=== PATIENT | female | born 1965 | race Caucasian/White ===

== ENCOUNTER 2016-10-22 01:37 | Observation (INO) ==
--- NOTE | 2016-10-22 08:43 | Internal Med History&Physical ---
Date of Encounter: 10/22/16 Time of Encounter: 08:41 Assessment and Plan (1) Chest pain Current visit: Yes Status: Acute Suspect that her symptoms is related to GERD. She had a normal coronary angiogram 3 years ago. However because of persistent pain she has been admitted to our facility. Serial cardiac markers. Continuous telemetry monitoring. IV Protonix Qualifiers: Qualified Code(s): R07.9 - Chest pain, unspecified (2) Diabetes mellitus type 2 in obese Current visit: Yes Status: Acute Sliding scale insulin. Check hemoglobin A-1 C. Internal Medicine - H&P: HPI Chief complaint: chest pain History of present illness: Ms. Paz is a 50 year old female with multiple medical problems including diabetes mellitus type II, obstructive sleep apnea noncompliant with CPAP, hypertension, GERD, asthma who had a normal coronary angiogram 3 years ago at our facility was transferred from outside the hospital because of chest pain. Since 9 PM yesterday patient started experiencing epigastric and retrosternal chest pain radiating to her left arm associated with multiple symptoms including nausea vomiting lightheadedness and shortness of breath. These symptoms have been consistent for multiple hours therefore she was transferred to facility further evaluation. She denies any hematemesis melena or hematochezia. D dimer was checked outside facility and was normal Past Med Surg Social Fam HX - Past Medical History Medical history: asthma, COPD, CVA, diabetes, GERD, hyperlipidemia, hypertension , liver disease, other Psychiatric history: anxiety, depression - Past Surgical History Surgical History: breast surgery, , hysterectomy, orthopedic, other, other - Social History Smoking Status: Never smoker Smokeless Tobacco Status: No Alcohol use: none Drug use: none - Family History Sister Hx Family Cancer: Yes (ovarian) Mother Living Status: Hx Family Cardiac Disorders: No Hx Family Respiratory Disorders: No Hx Family Cancer: Yes (brain) Hx Family GI Disorders: No Hx Family Endocrine Disorder: No Hx Family Neuromuscular Disorders: No Hx Family Neurologic Disorders: No Hx Family HEENT Disorders: No Hx Family Autoimmune Disorders: No Father Adopted: No Living Status: Hx Family Cardiac Disorders: No Hx Family Respiratory Disorders: No Hx Family Cancer: Yes (colon) Hx Family GI Disorders: Yes Hx Family Endocrine Disorder: No Hx Family Neuromuscular Disorders: No Hx Family Neurologic Disorders: No Hx Family HEENT Disorders: No Hx Family Autoimmune Disorders: No Internal Medicine - H&P: Meds Aspirin 81 mg PO DAILY 03/01/15 [History] Atorvastatin [Lipitor] 20 mg PO HS 03/11/15 [History] Lisinopril [Zestril] 10 mg PO DAILY 03/11/15 [History] Loratadine [Claritin] 10 mg PO DAILY 03/11/15 [History] Omeprazole [PriLOSEC] 40 mg PO DAILY 03/11/15 [History] Estradiol [Estrace] 1 mg PO DAILY 08/08/15 [History] Aclidinium [place] [Tudorza Pressair] 1 puff IH BID 01/27/16 [History] EPINEPHrine [Epipen] 0.3 mg IJ ONCE PRN 01/27/16 [History] Ipratropium/Albuterol Sulfate [Combivent Respimat Inhal [place]] 1 puff IH QID 12/07 [History] Montelukast [Singulair] 10 mg PO DAILY 01/27/16 [History] Metformin HCl [Glucophage] 1,000 mg PO BID 02/06/16 [History] Meloxicam 7.5 mg PO DAILY 04/07/16 [History] Albuterol Sulfate [Proair Respiclick] 1 puff IH BID 07/23/16 [History] Budesonide/Formoterol 160/4.5 [Symbicort 160/4.5] 1 puff IH BIDR 07/23/16 [ History] Ferrous Sulfate 325 mg PO BID #60 tablet 07/23/16 [Rx] GlipiZIDE [Glipizide] 5 mg PO DAILY 07/23/16 [History] Potassium Chloride [Klor-Con 10] 10 meq PO BID 07/23/16 [History] Tolterodine Tartrate [Detrol] 2 mg PO DAILY 07/23/16 [History] Cholecalciferol (Vitamin D3) [Vitamin D] 50,000 unit PO QWEEK 10/17/16 [History] Cyclobenzaprine [Flexeril] 10 mg PO TID #9 tablet 10/17/16 [Rx] Ipratropium/Albuterol Neb [Duoneb] 3 ml IH Q6HR 10/22/16 [History] Oxybutynin Chloride [Ditropan Xl] 10 mg PO DAILY 10/22/16 [History] Allergies mushroom Allergy (Verified 10/22/16 07:25) Swelling of Lip/Tongue/Throat All Systems PM: A 10-system review of systems was performed and is negative for pertinent findings except as documented above in the HPI. Review of systems: 10 point ROS is negative except for HPI. - Constitutional Vitals: Temp Pulse Resp BP Pulse Ox 97.9 F 74 20 106/66 98 10/22/16 07:39 10/22/16 07:39 10/22/16 07:39 10/22/16 07:39 10/22/16 07:39 Exam: Gen.: patient is alert oriented not in distress. Cardiac: Normal S1 S2 no additional sounds or murmurs chest: clear to auscultation abdomen soft nontender nondistended normal bowel sounds lower extremity: lax calf muscles neuro no focal deficit
[2016-10-22] MEDS ORDERED: Pantoprazole 40 MG VIAL IVP SCH (09:00)
[2016-10-22] MEDS ORDERED: (Ipratropium/Albuterol Sulfate [Combivent Respimat In) IH SCH (09:00)
[2016-10-22] MEDS ORDERED: Aspirin 81 MG TAB.CHEW PO SCH (09:00)
[2016-10-22 09:53] LABS: Basophils % 0.4 %; Eosinophils # 0.2 K/mcL (0.0-0.6); Hemoglobin 11.6 g/dL (11.5-15.4); Immature Granulocytes % 0.4 % (0-4); Lymphocytes # 1.9 K/mcL (0.6-4.6); Lymphocytes % 23.1 %; Mean Corpuscular HGB Conc 32.2 g/dL (31.6-35.5); Mean Corpuscular Hemoglobin 26.5 pg (28.0-33.3); Mean Corpuscular Volume 82.4 fL (83.0-100.0); Mean Platelet Volume 9.4 fL (9.4-12.4); Monocytes # 0.6 K/mcL (0.0-1.3); Monocytes % 7.4 %; Neutrophils # 5.4 K/mcL (1.6-8.9); Platelet Count 286 K/mcL (140-400); Red Blood Count 4.37 M/mcL (3.82-4.97); Red Cell Distribution Width 20.1 % (11.5-14.5); Segmented Neutrophils % 66.7 %
[2016-10-22] MEDS ORDERED: Budesonide/Formoterol 160/4.5 MDI IH SCH (10:00)
[2016-10-22 10:06] LABS: BUN/Creatinine Ratio 18 (6-26); Blood Urea Nitrogen 13 mg/dL (7-20); Calcium 9.2 mg/dL (8.6-10.8); Carbon Dioxide 25 mEq/L (19-29); Chloride 106 mEq/L (98-109); Creatine Kinase 72 Units/L (29-168); Glucose 108 mg/dL (70-99); Magnesium 2.3 mg/dL (1.6-2.6); Osmolality,Calculated 287 (280-300); Potassium 4.6 mEq/L (3.5-4.5); Sodium 138 mEq/L (136-145); eGFR For African Americans > 60 (> 60); eGFR For Non-African Americans > 60 (> 60)
--- NOTE | 2016-10-22 10:27 | Cardiology Consult Note ---
<Zacarias Laboy - Last Filed: 10/22/16 10:10> Date of Encounter: 10/22/16 Time of Encounter: 10:10 Assessment and Plan (1) Chest pain Current Visit: Yes Status: Acute Patient reports non cardiac chest pain that started last night. Substernal and epigastric, constant 7-8/10 CP that radiates down her left arm. Pain was reproducible with epigastric pressure. Patient received GI cocktail in ED that she states helped. CTA chest, abdomen, pelvis negative for acute abnormality, CXR negative. Recently she had cholesterol checked in Aug that were within normal limits. patient has Hx of LHC 11/08/13 which showed normal coronary arteries. EF was 65% . Recommendation was optical medical therapy at that time. She also had an Echo done 09/12/13, which was ordered due to palpitations. Echo showed LVEF 60-65%, normal LV structure and function moderate LV diastolic dysfunction, no significant valvular dysfunction, normal RV structure and function, no pulmonary hypertension. Patient had stress testing done on 08/09/15 which was negative for infarct or ischemia. pharmacolgic EKG was non diagnostic for ischemia, no arrhythmias noted , gated EF >70%, no evidence of TID. EKG did not show any significant signs of ischemia, and no change compared to previous EKG. Troponin negative. Plan: this is non cardiac chest pain, likely secondary to GI cause/GERD. Recommend further non cardiac Chest pain workup Another GI cocktail ordered. Given Hx of negative LHC and negative stress test in 2016, pre test probability is low for blockage, no LHC at this time. Continue medical management with ASA, statin No further recommendations from cardiology stand point. Will sign off. Please re consult PRN. Qualifiers: Qualified Code(s): R07.9 - Chest pain, unspecified Discussion w patient/family: The assessment and plan as outlined above was discussed with the patient and/or family members who expressed understanding and agreement. All questions were answered. Thank you for involving us in the care of your patient. Please call with any questions. History of Present Illness Consult date: 10/22/16 Requesting physician: Wolf Slade Consult reason: atypical chest pain Chief complaint: chest pain History of present illness: Ms. Paz is a 50 year old female with PMHx of DM II, TATI (reports compliance with CPAP at home), HTN, GERD, asthma. Patient went to [facility] ED with CC of substernal chest pain that radiated to her left arm. She had nausea, vomiting, and was diaphoretic. Patient stated the chest pain began at about 9pm last night and has been constant since. pain was 7-8/10. Her pain does not change whether she sits up or lays down, and her pain is not associated with activity. Patient does have a Hx of GERD and takes prilosec at home. She states she received a GI cocktail in the ED, which helped. She received 4 baby ASA in the ED at [facility]. Cardiac Hx: patient has Hx of LHC 11/08/13 which showed normal coronary arteries. EF was 65% at that time. Recommendation was optical medical therapy at that time. She also had an Echo done 09/12/13, which was ordered due to palpitations. Echo showed LVEF 60-65%, normal LV structure and function moderate LV diastolic dysfunction, no significant valvular dysfunction, normal RV structure and function, no pulmonary hypertension. Patient had stress testing done on 08/09/15 which was negative for infarct or ischemia. pharmacolgic EKG was non diagnostic for ischemia, no arrhythmias noted, gated EF >70%, no evidence of TID. Past Med Surg Social Fam HX - Past Medical History Medical history: asthma, COPD, CVA, diabetes, GERD, hyperlipidemia, hypertension , liver disease, other Psychiatric history: anxiety, depression - Past Surgical History Surgical History: breast surgery, , hysterectomy, orthopedic, other, other - Social History Smoking Status: Never smoker Smokeless Tobacco Status: No Alcohol use: none Drug use: none - Family History Sister Hx Family Cancer: Yes (ovarian) Mother Living Status: Hx Family Cardiac Disorders: No Hx Family Respiratory Disorders: No Hx Family Cancer: Yes (brain) Hx Family GI Disorders: No Hx Family Endocrine Disorder: No Hx Family Neuromuscular Disorders: No Hx Family Neurologic Disorders: No Hx Family HEENT Disorders: No Hx Family Autoimmune Disorders: No Father Adopted: No Living Status: Hx Family Cardiac Disorders: No Hx Family Respiratory Disorders: No Hx Family Cancer: Yes (colon) Hx Family GI Disorders: Yes Hx Family Endocrine Disorder: No Hx Family Neuromuscular Disorders: No Hx Family Neurologic Disorders: No Hx Family HEENT Disorders: No Hx Family Autoimmune Disorders: No Medications and Allergies Aspirin 81 mg PO DAILY 03/01/15 [History] Atorvastatin [Lipitor] 20 mg PO HS 03/11/15 [History] Lisinopril [Zestril] 10 mg PO DAILY 03/11/15 [History] Loratadine [Claritin] 10 mg PO DAILY 03/11/15 [History] Omeprazole [PriLOSEC] 40 mg PO DAILY 03/11/15 [History] Estradiol [Estrace] 1 mg PO DAILY 08/08/15 [History] Aclidinium [place] [Tudorza Pressair] 1 puff IH BID 01/27/16 [History] EPINEPHrine [Epipen] 0.3 mg IJ ONCE PRN 01/27/16 [History] Ipratropium/Albuterol Sulfate [Combivent Respimat Inhal [place]] 1 puff IH QID 12/07 [History] Montelukast [Singulair] 10 mg PO DAILY 01/27/16 [History] Metformin HCl [Glucophage] 1,000 mg PO BID 02/06/16 [History] Meloxicam 7.5 mg PO DAILY 04/07/16 [History] Albuterol Sulfate [Proair Respiclick] 1 puff IH BID 07/23/16 [History] Budesonide/Formoterol 160/4.5 [Symbicort 160/4.5] 1 puff IH BIDR 07/23/16 [ History] Ferrous Sulfate 325 mg PO BID #60 tablet 07/23/16 [Rx] GlipiZIDE [Glipizide] 5 mg PO DAILY 07/23/16 [History] Potassium Chloride [Klor-Con 10] 10 meq PO BID 07/23/16 [History] Tolterodine Tartrate [Detrol] 2 mg PO DAILY 07/23/16 [History] Cholecalciferol (Vitamin D3) [Vitamin D] 50,000 unit PO QWEEK 10/17/16 [History] Cyclobenzaprine [Flexeril] 10 mg PO TID #9 tablet 10/17/16 [Rx] Ipratropium/Albuterol Neb [Duoneb] 3 ml IH Q6HR 10/22/16 [History] Oxybutynin Chloride [Ditropan Xl] 10 mg PO DAILY 10/22/16 [History] Allergies mushroom Allergy (Verified 10/22/16 07:25) Swelling of Lip/Tongue/Throat All Systems Review: A 10-system review of systems was performed and is negative for pertinent findings except as documented above in the HPI. - Constitutional Constitutional: weight gain, no chills - Cardiovascular Cardiovascular: chest pain at rest, chest pain with exertion, no diaphoresis, no radiating jaw, neck or arm pain, no syncope - Gastrointestinal Gastrointestinal: abdominal pain - Musculoskeletal Musculoskeletal: no back pain - Integumentary Integumentary: no rash - Neurological Neurological: no dizziness Physical Examination Vital Signs, Last 4 Hours Temp Pulse Resp BP Pulse Ox 10/22/16 07:39 97.9 F 74 20 106/66 98 General: Conversant, Other (moderate distress due to chest pain. ) HEENT: Atraumatic, Normocephaly Neck: No JVD Cardiac: Normal S1 and S2 Lungs: No Wheeze, Rales, Rhonchi Neuro: Alert and responsive, No focal deficits noted Abdomen: Soft, Other (epigastric tenderness. ) Extremities: No Clubbing, No Cyanosis, No Edema Consult Discharge Plan - Plan Referrals: NO,PCP [Primary Care Provider] - <Estefani Villaseñor - Last Filed: 10/22/16 12:40> Date of Encounter: 10/22/16 Assessment and Plan Discussion w patient/family: The assessment and plan as outlined above was discussed with the patient and/or family members who expressed understanding and agreement. All questions were answered. Thank you for involving us in the care of your patient. Please call with any questions. History of Present Illness History of present illness: Ms. Paz is a 50 year old female All Systems Review: A 10-system review of systems was performed and is negative for pertinent findings except as documented above in the HPI. Physical Examination Vital Signs, Last 4 Hours Temp Pulse Resp BP Pulse Ox 10/22/16 11:08 97.6 F 78 18 114/80 99 10/22/16 10:50 98 Results 10/22/16 09:15 10/22/16 09:15 Lab Results 10/22/16 10/22/16 10/22/16 09:15 09:15 09:15 WBC 8.1 Hgb 11.6 D Hct 36.0 Plt Count 286 Sodium 138 Potassium 4.6 H Chloride 106 Carbon Dioxide 25 BUN 13 Creatinine 0.74 Glucose 108 H Calcium 9.2 Magnesium 2.3 Troponin I 0.00 - Attending Attestation I examined this patient and my medical decision-making was reviewed with the SPEECH SCIENTIST/PA/Advanced Practice Nurse/Resident Physician. I agree with the documented findings, disposition and treatment plan. Ms. Paz presents with atypical chest pain that is reproducible when palpating the mid epigastric area. Her chest pain does not represent an ACS. Her troponin was negative and she has no new ECG changes. She also had a LHC in 2013 which did not demonstrate CAD. No further testing is warranted from a cardiac standpoint. We will sign off.
[2016-10-22] MEDS ORDERED: GI Cocktail 40 ML EACH PO ONE (11:22)
[2016-10-22] MEDS ORDERED: Insulin LISPRO 300 UNITS/3 ML VIAL SQ SCH (11:30)
[2016-10-22] MEDS ORDERED: *HR* Heparin 5,000 UNIT/ML VIAL SQ SCH (14:00)
[2016-10-22 16:12] VITALS: BP 125/79
--- NOTE | 2016-10-22 17:26 | Discharge Summary ---
Date of Encounter: 10/22/16 Time of Encounter: 17:25 - Discharge Diagnosis (1) Chest pain Priority: Primary (non anginal. 3 sets of troponin normal) Status: Acute Comments: Non anginal chest pain 3 sets of cardiac markers normal. Qualifiers: Qualified Code(s): R07.9 - Chest pain, unspecified (2) Diabetes mellitus type 2 in obese Priority: Secondary (controlled) Status: Acute - Discharge Medications Home Medications: Aspirin 81 mg PO DAILY 03/01/15 [History] Atorvastatin [Lipitor] 20 mg PO HS 03/11/15 [History] Lisinopril [Zestril] 10 mg PO DAILY 03/11/15 [History] Loratadine [Claritin] 10 mg PO DAILY 03/11/15 [History] Omeprazole [PriLOSEC] 40 mg PO DAILY 03/11/15 [History] Estradiol [Estrace] 1 mg PO DAILY 08/08/15 [History] Aclidinium [place] [Tudorza Pressair] 1 puff IH BID 01/27/16 [History] EPINEPHrine [Epipen] 0.3 mg IJ ONCE PRN 01/27/16 [History] Ipratropium/Albuterol Sulfate [Combivent Respimat Inhal [place]] 1 puff IH QID 12/07 [History] Montelukast [Singulair] 10 mg PO DAILY 01/27/16 [History] Metformin HCl [Glucophage] 1,000 mg PO BID 02/06/16 [History] Albuterol Sulfate [Proair Respiclick] 1 puff IH BID 07/23/16 [History] Budesonide/Formoterol 160/4.5 [Symbicort 160/4.5] 1 puff IH BIDR 07/23/16 [ History] Ferrous Sulfate 325 mg PO BID #60 tablet 07/23/16 [Rx] GlipiZIDE [Glipizide] 5 mg PO DAILY 07/23/16 [History] Potassium Chloride [Klor-Con 10] 10 meq PO BID 07/23/16 [History] Tolterodine Tartrate [Detrol] 2 mg PO DAILY 07/23/16 [History] Cholecalciferol (Vitamin D3) [Vitamin D3] 50,000 unit PO QWEEK 10/17/16 [History ] Cyclobenzaprine [Flexeril] 10 mg PO TID #9 tablet 10/17/16 [Rx] Ipratropium/Albuterol Neb [Duoneb] 3 ml IH Q6HR 10/22/16 [History] Oxybutynin Chloride [Ditropan Xl] 10 mg PO DAILY 10/22/16 [History] Allergies/Adverse Reactions: Allergies mushroom Allergy (Verified 10/22/16 07:25) Swelling of Lip/Tongue/Throat Date of admission: 10/22/16 04:10 Primary care physician: PCP NO Consults: 10/22/16 08:35 Consult to Cardiology [CONS] Routine Comment: Consulting Provider: [facility] [place] Reason for Consult: chest pain Call Completed: No - Patient Status Disposition: Home, Self-Care Condition: Fair Overall status at discharge: patient is progressing back to baseline - Discharge Instructions Follow Up With: NO,PCP [Primary Care Provider] - Additional Instructions: follow up with PCP within 3-4 days after DC - Diet and Activity Diet: advance to your usual diet Hospital course: Ms. Paz is a 50 year old female who presented to the hospital with a typical chest pain. 3 sets of cardiac markers were normal. Cardiology service evaluated the patient and the find off. Patient mentioned that she had a coronary angiogram a few years ago but showed no occlusive disease. Patient wants to be discharged home does not want us be monitored overnight in the hospital. Her D dimer was also normal - Time Spent with Patient Total time spent providing and/or coordinating discharge services: - Constitutional Vitals: Temp Pulse Resp BP Pulse Ox 97.9 F 78 14 125/79 97 10/22/16 16:09 10/22/16 16:09 10/22/16 16:09 10/22/16 16:09 10/22/16 16:09 Exam: General patient is alert oriented modern distress cardio: normal S1 S2 chest: clears auscultation abdomen soft nontender neurological no focal deficit
[2016-10-25 11:32] LABS: CK-MB (CK isoenzymes) 0 % (0-4); CK-MM (CK-isoenzymes) 100 % (96-100)
[2016-10-25 19:37] LABS: CK-BB (CK isoenzymes) 0 % (0-0); CK-MB (CK isoenzymes) 0 % (0-4); CK-MM (CK-isoenzymes) 100 % (96-100)
[2016-10-26 07:19] LABS: CK Total (Ck Isoenzymes) 71 U/L (20-180); CK-BB (CK isoenzymes) 0 % (0-0)
[2016-10-26 07:20] LABS: CK Total (Ck Isoenzymes) 74 U/L (20-180)
== END 2016-10-22 18:43 | disposition home or self-care (01) ==
LOC: 3BNU
PROVIDERS: ADMIT Internal Medicine; ATTEND Registered Nurse

== ENCOUNTER 2017-11-29 05:53 | Inpatient (IN) ==
[2017-11-29] MEDS ORDERED: Bacitracin 50,000 UNIT, Polymyxin B Sulfate 500,000 UNIT, Sodium Chloride IRRigation 1,... IR ONE (06:00)
[2017-11-29] MEDS ORDERED: CeFAZolin Syr 2,000MG/20 ML 2,000 MG/20 ML SYRINGE IVPB ONE (06:17)
[2017-11-29] MEDS ORDERED: Ringers Solution, Lactated 1,000 ML IVC SCH (06:30)
[2017-11-29] MEDS ORDERED: Albuterol 2.5 MG/3 ML NEBULIZER IH ONE (06:35)
[2017-11-29] MEDS ORDERED: Acetaminophen IV 1,000 MG/100 ML INFUS..BTL IVPB ONE (06:58)
--- NOTE | 2017-11-29 07:00 | Anesthesia Evaluation PreOp ---
Date of Encounter: 11/29/17 Time of Encounter: 07:00 - Past History Planned Operation: PLIF L4-5 Cardiac History: Hyperlipidemia, Other (2016 stress negative for ischemia EF 70% ) Pulmonary History: Asthma, COPD, TATI Dx SOFTWARE DESIGN ENGINEER History: Other (anxiety, depression) Other Medical History: Diabetes Type II, GERD Anesthesia History: No Prior Anesthetic Complications, Past Anesthesia (csection , breast reduction, hysterectomy,) Alcohol Use: none Drug use: none Medications and Allergies Aspirin 81 mg PO DAILY 03/01/15 [History] Atorvastatin [Lipitor] 20 mg PO HS 03/11/15 [History] Lisinopril [Zestril] 10 mg PO DAILY 03/11/15 [History] Omeprazole [PriLOSEC] 40 mg PO DAILY 03/11/15 [History] EPINEPHrine [Epipen] 0.3 mg IJ ONCE PRN 01/27/16 [History] Metformin HCl [Glucophage] 1,000 mg PO BID 02/06/16 [History] Albuterol Sulfate [Proair Respiclick] 1 puff IH BID 07/23/16 [History] Budesonide/Formoterol 160/4.5 [Symbicort 160/4.5] 1 puff IH BIDR 07/23/16 [ History] glipiZIDE [Glipizide] 5 mg PO DAILY 07/23/16 [History] Ipratropium/Albuterol Neb [Duoneb] 3 ml IH Q6HR 10/22/16 [History] Cyanocobalamin (Vitamin B-12) [Vitamin B-12] 2,000 mcg PO DAILY #30 tablet 12/28 [Rx] Ferrous Sulfate 325 mg PO BID #60 tablet 02/08/17 [Rx] Gabapentin [Neurontin] 600 mg PO TID 11/29/17 [History] Meloxicam [Meloxicam] 7.5 mg PO DAILY 11/29/17 [History] Potassium Citrate [Urocit-K] 1,080 meq PO QID 11/29/17 [History] 3 Allergy/AdvReac Type Severity Reaction Status Date / Time mushroom Allergy Swelling Verified 11/22/17 08:28 of Lip/Tongue/Throat - Meds/Allergy Pre-op Review Medications Reviewed: Yes Allergies Reviewed: Yes Beta Blockers on Current Med List: No Anesthesia Results - Labs Laboratory Tests 11/22/17 11/22/17 08:50 08:50 WBC 8.6 Hgb 12.9 Hct 38.8 Plt Count 317 PT 11.5 INR 1.1 APTT 30.8 - Imaging EKG: report reviewed (sinus tachy 100bpm) Anesthesia Exam O2 Sat Height 1.5 m Height 1.5 m Height 1.5 m Weight 79.832 kg Weight 79.832 kg Weight 79.832 kg O2 Sat by Pulse Oximetry 97 O2 Sat by Pulse Oximetry 97 Vital Signs Temp Pulse Resp BP Pulse Ox 98.1 F 68 18 113/59 97 11/29/17 06:17 11/29/17 06:17 11/29/17 06:17 11/29/17 06:17 11/29/17 06:17 Blood glucose: 138 Height: 59" Weight: 176lbs NPO (# of Hours): >8 Pain Scale: 10 Pain Scale Used: Numeric (1 - 10) - HEENT Pupil (Motor): Pupils equal, EOMI Mallampati: III (small chin) Teeth: Missing (lower molars) Oral Opening: Less than or equal to 3 - SOFTWARE DESIGN ENGINEER LOC: Oriented SOFTWARE DESIGN ENGINEER Motor: Normal RUE, Normal LUE, Normal RLE, Normal LLE, Normal Face SOFTWARE DESIGN ENGINEER Sensory: Normal: RUE, LUE, RLE, LLE, Face - Cardiac Rhythm: Regular - Pulmonary Breath Sounds: bilateral Clear Respiratory Effort: Symmetrical Anesthesia Assess/Plan ASA Score: 3 (HTN, asthma, COPD, TATI, DM) Anesthetic Plan: General Monitoring Plan: Standard Monitors Recovery Plan: PACU
[2017-11-29] MEDS ORDERED: Lidocaine -MPF 1% 2 ML VIAL ONE ×2 (07:12→07:22)
--- NOTE | 2017-11-29 07:25 | History & Physical Report ---
Date of Encounter: 11/29/17 Time of Encounter: 07:24 24 Hour HP Update - Instructions Instructions: If the History and Physical is less than 30 days old and was completed prior to A.M. admission and or procedure and has NOT been updated on calendar day of procedure please complete this update prior to performing procedure. - Update Patient reports changes in Medical Condition: No Changes in examination, assessment, or condition: No Changes in Medication: No Preop tests/diagnostics Reviewed: Yes Pre-Op MRSA Screen: Negative Surgery Remains Indicated: Yes Consent for Planned Operative Procedure(s) Verified: Yes - Pre-Operative Checklist Preoperative Checklist Indicated: No Prophylactic Antibiotic Ordered: Yes Home Medications Include Beta Dixie: No Beta Dixie Taken Today (Day of Surgery): No Beta Dixie Taken Yesterday (Day Prior to Surgery): No Is VTE Prophylaxis Indicated?: Yes
[2017-11-29] MEDS ORDERED: *HR* Rocuronium Bromide 50 MG/5 ML VIAL ONE (07:28)
[2017-11-29] MEDS ORDERED: *HR* FentaNYL (PF) 100 MCG/2 ML VIAL ONE ×2 (07:28→10:10)
[2017-11-29] MEDS ORDERED: Lidocaine -MPF 4% 5 ML AMPUL ONE (07:28)
[2017-11-29] MEDS ORDERED: *HR* Propofol 200 MG/20 ML VIAL IVP ONE (07:28)
[2017-11-29] MEDS ORDERED: Lidocaine -MPF 2% 2 ML VIAL ONE (07:28)
[2017-11-29] MEDS ORDERED: *HR* Midazolam HCl 2 MG/2 ML VIAL ONE (07:28)
[2017-11-29] MEDS ORDERED: *HR* Remifentanil 2 MG VIAL IVP ONE (08:21)
[2017-11-29] MEDS ORDERED: Dexamethasone 4 MG/ML VIAL ONE (08:37)
[2017-11-29] MEDS ORDERED: Neostigmine Methylsulfate 3 MG/3 ML SYRINGE ONE (08:41)
[2017-11-29] MEDS ORDERED: Ondansetron 4 MG/2 ML VIAL ONE (08:42)
[2017-11-29] MEDS ORDERED: Ondansetron 4 MG/2 ML VIAL IVP PRN (08:59)
[2017-11-29] MEDS ORDERED: *HR* OxyCODONE Immed Rel 5 MG TABLET PO PRN (08:59)
[2017-11-29] MEDS ORDERED: *HR* HYDROmorphone 2 MG TABLET PO PRN (08:59)
[2017-11-29] MEDS ORDERED: MORPHINE SUL Oral CONC 10 MG/0.5 ML ORAL.SYG SL PRN (08:59)
[2017-11-29] MEDS ORDERED: *HR* PHENYLEPHRINE 1,000 MCG/10 ML SYRINGE IVP ONE (09:09)
--- NOTE | 2017-11-29 10:27 | Orthopedic Operative Note ---
Date of procedure: 11/29/17 Pre-op diagnosis: Spondylolisthesis, lumbar stenosis, lumbar radiculopathy Post-op diagnosis: same Operation/Findings: Posterior lumbar interbody fusion L4-L5: The patient successfully underwent general endotracheal anesthesia. The patient was given antibiotics prior to the start of the procedure. Compression boots and stockings were used for deep vein thrombosis prophylaxis. A Cohen catheter was placed. Leads for neuro monitoring were placed on the upper and lower extremities. This included the cranium. The neuro monitoring personnel confirmed there were satisfactory readings prior to the start of the procedure. The patient was turned prone on the Rolf table. The back was prepped and draped in the usual sterile fashion. An incision was was marked and centered over the involved L4 and L5 levels in the mid line. The incision was deepened through the lumbar fascia. Bovie cautery and Gaines elevators were used to reflect the paraspinal musculature at the lateral extent of the L4 and L5 transverse processes of the involved levels. Laura clamps were placed over the L4 and L5 spinous processes. An intraoperative lateral fluoroscopy graft was obtained. A conversation was held between the surgeon and radiologist and both confirmed we had the correct operative levels. We then placed pedicle screws in standard fashion with the aid of fluoroscopy and anatomic landmarks. Briefly a starter awl was used. A gearshift was subsequently used to enter the airline transport pilot hole via a transpedicular route into the vertebral body. The airline transport pilot hole was tapped with an undersized instrument, and subsequently four 6.5 x 40 mm pedicle screws were placed bilaterally at the indicated L4 and L5 levels. The screws were tested with the aid of the neurologic monitoring staff via pedicle screw stimulation. All reading suggested there was no significant cortical wall breech. The screws were also evaluated fluoro- graphically and appeared to be in satisfactory position. We then turned our attention to the decompression portion of the procedure. We removed the supraspinous and interspinous ligaments and subsequently the insertion of the ligamentum flavum on the undersurface of the proximal L4 lamina was dislodged with a curette. We then removed the ligamentum flavum as well as undercut the L4-L5 facets at this L4- L5 level to decompress the lateral recesses. We also performed a L4 laminectomy. After the decompression, which was over and above that which was required to place the interbody graft, the foramen and traversing roots at this L4-L5 level were found to be free and patent. We also took part of the medial facets in order to aid in the decompression. We then protected the neural elements including the thecal sac and traversing nerve root on the right with a dural retractor. We made an annulotomy into the L4-L5 disc space and then removed entire disc material using Pituitary instruments. We trialed various size grafts after the endplates were prepared for graft insertion. A 10 x 26 enter body graft fit well within the L4-L5 disc space. We obtained some bone from the right posterior superior iliac spine through us a separate incision and combined with this with the bone which we had saved from the laminectomy portion of the procedure. This autograft bone was first placed in the anterior portion of the L4-L5 disc space and additional bone was placed within the interbody graft spacer. We then placed the interbody graft spacer obliquely across the L4-L5 disc space towards the midline while protecting the neural elements with a root retractor. When the graft was found to be in satisfactory position the rack cleaner was removed. We then copiously irrigated the wound. We then decorticated the L4 and L5 transverse processes as well as the L4-L5 facet joints of the involved levels to aid in the posterolateral fusion. We placed autograft bone in the lateral gutters over these regions. We then placed rods within the screw heads of the involved levels and first locked the distal screws and then subsequently locked the proximal screws so as to improve and reduce the spondylolisthesis previously seen. We then closed the wound in layers with 1 Vicryl for the fascia, 2-0 Vicryl. Subcutaneous tissue, and Dermabond was used for skin closure. Sterile dressings were placed over the wound. The patient was turned supine on a hospital bed and extubated. All sponge instruments and needle counts were correct at the end of the procedure. The patient tolerated the procedure well without complications. Anesthesia: GETA Surgeon: Case Elizabeth Jr Was there an patient observation assistant present: No Estimated blood loss (cc): 120 Specimen: None Condition: stable Disposition: PACU
--- NOTE | 2017-11-29 11:04 | Anesthesia Evaluation Post Op ---
Date of Encounter: 11/29/17 Time of Encounter: 11:05 - Vital Signs Vital Signs: Vital Signs/O2 Sat/Glucose, Most Current Temp Pulse Resp BP Pulse Ox 11/29/17 10:40 98.1 F 82 14 131/79 99 - Lungs Lungs: Clear Ascult./Percussion - Airway Airway: Non-obstructed - Cardiovascular Regular Rate - Mental Status Mental Status: Alert & Oriented, Answers Appropriately - Pain Pain Scale: 1 - Nausea Vomiting Nausea Vomiting: Not Present - Hydration Hydration: Ice chips - Discharge PostOp Status: Transfer Patient to floor
[2017-11-29] MEDS ORDERED: Naloxone 0.4 MG/ML INJ IVP PRN (11:36)
[2017-11-29] MEDS ORDERED: Acetaminophen 325 MG TABLET PO PRN (11:36)
[2017-11-29] MEDS ORDERED: *HR* HYDROcodone/Acet 5/325 mg TABLET PO PRN (11:36)
[2017-11-29] MEDS: Potassium Citrate 10 MEQ TABLET.ER PO SCH ×2 (13:35→18:00)
[2017-11-29] MEDS: *HR* OxyCODONE Immed Rel 5 MG TABLET PO PRN ×2 (14:44→20:34)
[2017-11-29] MEDS: Ipratropium/Albuterol Neb 3 ML IH SCH ×3 (14:50→23:34)
[2017-11-29] MEDS: CeFAZolin Pre 2,000 MG/100 ML 2,000 MG/100 ML BAG IVPB SCH (16:01)
[2017-11-29] MEDS: *HR* Metformin 500 MG TABLET PO SCH (17:09)
[2017-11-29] MEDS: Ondansetron 4 MG/2 ML VIAL IVP PRN (17:37)
[2017-11-29] MEDS: Ringers Solution, Lactated 1,000 ML IVC SCH ×2 (21:06→23:15)
[2017-11-29] MEDS: (Albuterol Sulfate [Proair Respiclick] 1 PUFF) IH SCH (21:09)
[2017-11-29] MEDS: Budesonide/Formoterol 160/4.5 MDI IH SCH (22:16)
[2017-11-30] MEDS: Potassium Citrate 10 MEQ TABLET.ER PO SCH ×5 (00:03→20:43)
[2017-11-30] MEDS: CeFAZolin Pre 2,000 MG/100 ML 2,000 MG/100 ML BAG IVPB SCH (00:03)
[2017-11-30] MEDS: *HR* OxyCODONE Immed Rel 5 MG TABLET PO PRN ×3 (06:18→21:07)
[2017-11-30] MEDS: Ipratropium/Albuterol Neb 3 ML IH SCH ×4 (07:19→22:01)
[2017-11-30] MEDS: Ringers Solution, Lactated 1,000 ML IVC SCH ×2 (07:34→17:37)
[2017-11-30] MEDS: *HR* GlipiZIDE 5 MG TABLET PO SCH (07:35)
[2017-11-30] MEDS: *HR* Metformin 500 MG TABLET PO SCH ×2 (07:35→17:38)
[2017-11-30] MEDS: Aspirin 81 MG TAB.CHEW PO SCH (07:35)
[2017-11-30] MEDS: Cyanocobalamin (B-12) 1,000 MCG TABLET PO SCH (07:37)
--- NOTE | 2017-11-30 10:09 | Orthopedics Progress Note ---
Date of Encounter: 11/30/17 Time of Encounter: 08:15 - Assessment and Plan (1) Spondylolisthesis, lumbar region Current Visit: Yes Status: Chronic (2) Lumbar stenosis Current Visit: Yes Status: Chronic Qualifiers: Neurogenic claudication status: unspecified Qualified Code(s): M48.061 - Spinal stenosis, lumbar region without neurogenic claudication (3) Lumbar radiculopathy Current Visit: Yes Status: Chronic (4) Status post lumbar spinal fusion Current Visit: Yes Status: Acute Subjective Principal diagnosis: Spondylolisthesis, lumbar stenosis, lumbar radiculopathy Interval history: POD#1 Posterior lumbar interbody fusion L4-L5 on 11/29/17 for Spondylolisthesis , lumbar stenosis, lumbar radiculopathy The patient is without complaints. Afebrile vital signs are stable. Incision is clean dry and intact. Neurovascularly intact with regard to bilateral lower extremities. Fires all upper and lower extremity motor groups. Assessment: Stable postoperative. Plan: Reviewed postoperative restrictions and precautions. Patient verbalized understanding. Brace/Collar present and patient aware to apply with activity. Mobilize with therapy Continue analgesics as needed Discharge planning - awaiting therapy recommendations Radiographs pending Objective Vital signs: Vital Signs Temp Pulse Resp BP Pulse Ox 11/30/17 06:19 98.6 F 80 18 96/64 95 11/30/17 03:47 97.6 F 70 15 92/62 97 11/30/17 00:07 97.6 F 69 16 100/65 97 11/29/17 23:36 14 99 11/29/17 22:18 14 99 11/29/17 19:51 98.1 F 75 16 103/69 98 11/29/17 13:45 97.6 F 66 15 111/72 95 11/29/17 12:25 98.7 F 76 16 102/55 97 11/29/17 11:58 98.9 F 79 15 97/62 97 11/29/17 11:35 98.8 F 73 14 104/70 98 11/29/17 11:10 97.6 F 79 14 118/83 98 11/29/17 11:00 74 14 113/68 97 11/29/17 10:50 80 14 114/74 95 11/29/17 10:40 98.1 F 82 14 131/79 99 Intake and Output 0511/30/17 11/30/17 23:59 07:59 15:59 Intake Total 220 / 220 1000 / 1000 Output Total 50 / 50 3250 / 3250 Balance 170 / 170 -2250 / -2250 Intake: IV Fluids 100 / 100 1000 / 1000 Lactated Ringers 1,000 ML @ 100 1000 / 1000 mls/hr IVC .Q10H [facility] Rx#: [id number] Ancef Premix 2,000 MG/100 ML 2, 100 / 100 000 mg In 100 ml @ 200 mls/hr IVPB Q8HR [facility] Rx#:[id number] Oral 120 / 120 Output: Emesis 50 / 50 Catheter 3250 / 3250 Other: Meal Dinner Percent of Meal Consumed 10% Blood Glucose* 250 136 - Labs Labs: Abnormal lab results POC Glucose 250 mg/dL (70-99) H 11/29/17 19:54 - VTE Documentation of Mechanical Device: Graduated compression elastic hosiery Consult Discharge Plan - Plan Referrals: Fátima Yung MD [Primary Care Provider] -
[2017-11-30] MEDS: Budesonide/Formoterol 160/4.5 MDI IH SCH ×2 (10:47→22:01)
[2017-11-30] MEDS: (Albuterol Sulfate [Proair Respiclick] 1 PUFF) IH SCH (20:43)
[2017-12-01] MEDS: Ipratropium/Albuterol Neb 3 ML IH SCH ×4 (03:49→22:05)
[2017-12-01] MEDS: *HR* OxyCODONE Immed Rel 5 MG TABLET PO PRN ×3 (06:19→17:45)
[2017-12-01] MEDS: *HR* Metformin 500 MG TABLET PO SCH ×2 (09:15→17:41)
[2017-12-01] MEDS: Potassium Citrate 10 MEQ TABLET.ER PO SCH ×4 (09:15→19:50)
[2017-12-01] MEDS: *HR* GlipiZIDE 5 MG TABLET PO SCH (09:15)
[2017-12-01] MEDS: Cyanocobalamin (B-12) 1,000 MCG TABLET PO SCH (09:16)
[2017-12-01] MEDS: Aspirin 81 MG TAB.CHEW PO SCH (09:16)
--- NOTE | 2017-12-01 09:27 | Discharge Summary ---
Orders not resulted at time of discharge: Pending orders 11/29/17 XR fluoroscopy <1 hr [XR] Routine 12/01/17 09:24 XR lumbar spine 2-3V [XR] Routine 12/02/17 08:28 XR lumbar spine 2-3V [XR] Routine Date of Encounter: 12/02/17 Time of Encounter: 08:35 - Discharge Diagnosis (1) Spondylolisthesis, lumbar region Priority: Primary Status: Chronic (2) Lumbar stenosis Priority: Primary Status: Chronic Qualifiers: Neurogenic claudication status: unspecified Qualified Code(s): M48.061 - Spinal stenosis, lumbar region without neurogenic claudication (3) Lumbar radiculopathy Priority: Primary Status: Chronic (4) Status post lumbar spinal fusion Priority: Primary Status: Acute - Hospital Course Hospital course: Ms. Paz is a 51 year old female Posterior lumbar interbody fusion L4-L5 on for Spondylolisthesis, lumbar stenosis, lumbar radiculopathy The patient had an uneventful postoperative course. Progressed from intravenous analgesic needs to oral analgesic needs only. Remained neurovascularly intact and mobilized satisfactorily. All intraoperative and/or postoperative radiographic studies were satisfactory. Patient is discharged with plan for rehabilitation and follow-up in 2 weeks post discharge on analgesic medication and patient's home medications. - Time Spent with Patient Total time spent providing and/or coordinating discharge services: - Discharge Medications Prescriptions: OxyCODONE Immed Rel [Roxicodone 5 MG] 5 mg PO Q6H PRN 7 Days #28 tablet PRN Reason: Severe Pain Home Medications: Aspirin 81 mg PO DAILY 03/01/15 [History] Atorvastatin [Lipitor] 20 mg PO HS 03/11/15 [History] Lisinopril [Zestril] 10 mg PO DAILY 03/11/15 [History] Omeprazole [PriLOSEC] 40 mg PO DAILY 03/11/15 [History] EPINEPHrine [Epipen] 0.3 mg IJ ONCE PRN 01/27/16 [History] Metformin HCl [Glucophage] 1,000 mg PO BID 02/06/16 [History] Albuterol Sulfate [Proair Respiclick] 1 puff IH BID 07/23/16 [History] Budesonide/Formoterol 160/4.5 [Symbicort 160/4.5] 1 puff IH BIDR 07/23/16 [ History] glipiZIDE [Glipizide] 5 mg PO DAILY 07/23/16 [History] Ipratropium/Albuterol Neb [Duoneb] 3 ml IH Q6HR 10/22/16 [History] Cyanocobalamin (Vitamin B-12) [Vitamin B-12] 2,000 mcg PO DAILY #30 tablet 12/28 [Rx] Ferrous Sulfate 325 mg PO BID #60 tablet 02/08/17 [Rx] Gabapentin [Neurontin] 600 mg PO TID 11/29/17 [History] Potassium Citrate [Urocit-K] 1,080 mg PO QID 11/29/17 [History] OxyCODONE Immed Rel [Roxicodone 5 MG] 5 mg PO Q6H PRN 7 Days #28 tablet [Rx] Allergies/Adverse Reactions: 3 Allergy/AdvReac Type Severity Reaction Status Date / Time mushroom Allergy Swelling Verified 11/22/17 08:28 of Lip/Tongue/Throat Date of admission: 11/29/17 11:45 Primary care physician: Fátima Yung, Consults: 11/29/17 11:36 Consult to Occupational Therapy [CONS] Routine Comment: Evaluate, develop and implement POC Reason for Consult: Postoperative rehabilitation Does patient have active BEDREST order?: No Is patient medically & hemodynamically stable?: Yes Patient assessed for mobility or mobilized this visit?: No Consult to Physical Therapy [CONS] Routine Comment: Evaluate, develop and implement POC Reason for Consult: Postoperative rehabilitation Does patient have active BEDREST order?: No Is patient medically & hemodynamically stable?: Yes Patient assessed for mobility or mobilized this visit?: No Consult to Spine Navigator [CONS] [CONS] Routine - VTE Documentation of Mechanical Device: Intermittent pneumatic compression device Labs on day of discharge: Labs from last 24 hours 11/30/17 11/30/17 11/30/17 20:17 16:15 11:10 POC Glucose 165 H 128 H 173 H 11/30/17 07:19 POC Glucose 136 H - Impressions ITS Impressions Lumbar Spine X-Ray 11/29/17 00:00 IMPRESSION: Single lateral view of the lumbar spine demonstrates fixation hardware and disc spacer at L4-L5. D/ / 11/29/2017 13:13:01 Galina Avila / geni Interpreting Provider: Galina Avila - Patient Status Disposition: Home, Self-Care Condition: Good Functional capacity at discharge: uses cane/walker Overall status at discharge: patient is progressing back to baseline - Discharge Instructions Follow Up With: Lavinia Joe PAC [Physician Spanish Linguist] - 12/13/17 11:00 am Fátima Yung MD [Primary Care Provider] - 12/09/17 11:00 am Additional Instructions: Discharge Instructions: Lumbar Please call [facility] ([phone]), your Primary Care Physician, or report to the ER if you have any of the following symptoms: Fever greater that 101.5, increased pain/redness/drainage/odor for your incision site or any other concerning symptoms. ACTIVITY * May Shower * No Tub Baths * No lifting greater than 10 pounds * No Smoking * No Swimming * No off Ground Activities (Running, Climbing, Ladders, Horseback Riding) * No Driving * Wear Back Brace when up walking if lumbar fusion done MEDICATIONS: Upon discharge resume your home medications. Take all the medications as prescribed. Take a stool softener if taking narcotic pain medications. Stool softeners are only effective if you drink enough fluids. Drink 6-8 glass of water or fluids a day, unless this is not allowed for another health problem. Despite using stool softeners, if you haven't had a bowel movement in 3 days, please switch to a gentle laxative. Gentle laxatives are sold over the counter. You should have a bowel movement within 24 hours, if not call the office. You will be discharged from the hospital with a prescription for pain medication. You are encouraged to decrease the use of narcotic pain medication as tolerated. Should you require a refill, please call the office. It is best to call 48-72 hours in advance of needing a prescription refill so you don't run out of medication. WOUND CARE: Remove Dressing Tomorrow. Leave incision open to air. Pat dry when you get out of the shower. FOLLOW-UP: Please follow up with your surgeon in the orthopedic clinic in 2 weeks from the day of surgery. References: [employer] ([email or web address]) - Diet and Activity Activity: as per physical therapy Diet: advance to your usual diet
[2017-12-01] MEDS: Budesonide/Formoterol 160/4.5 MDI IH SCH ×2 (10:46→22:05)
[2017-12-01] MEDS: Ondansetron 4 MG/2 ML VIAL IVP PRN (14:44)
--- NOTE | 2017-12-01 15:56 | Orthopedics Progress Note ---
Date of Encounter: 12/01/17 Time of Encounter: 08:55 - Assessment and Plan (1) Spondylolisthesis, lumbar region Current Visit: Yes Status: Chronic (2) Lumbar stenosis Current Visit: Yes Status: Chronic Qualifiers: Neurogenic claudication status: unspecified Qualified Code(s): M48.061 - Spinal stenosis, lumbar region without neurogenic claudication (3) Lumbar radiculopathy Current Visit: Yes Status: Chronic (4) Status post lumbar spinal fusion Current Visit: Yes Status: Acute Subjective Principal diagnosis: Spondylolisthesis, lumbar stenosis, lumbar radiculopathy Interval history: POD#2 Posterior lumbar interbody fusion L4-L5 on 11/29/17 for Spondylolisthesis , lumbar stenosis, lumbar radiculopathy The patient is without complaints. Afebrile vital signs are stable. Incision is clean dry and intact. Neurovascularly intact with regard to bilateral lower extremities. Fires all upper and lower extremity motor groups. Patient requesting to discuss possible discharge today rather than tomorrow. Assessment: Stable postoperative. Plan: Reviewed postoperative restrictions and precautions. Patient verbalized understanding. Brace applied and patient aware to apply with activity. Mobilize with therapy Continue analgesics as needed Discharge planning - home with self-care either today or tomorrow Radiographs pending - order changed to today We will discuss with Dr. Elizabeth following discharge Objective Vital signs: Vital Signs Temp Pulse Resp BP Pulse Ox 12/01/17 15:48 98.9 F 104 17 103/69 96 12/01/17 15:25 16 93 12/01/17 12:02 98.7 F 104 16 102/66 97 12/01/17 10:46 18 96 12/01/17 07:15 98.6 F 86 18 102/64 94 12/01/17 03:49 18 96 12/01/17 02:24 99.2 F 89 18 111/64 98 12/01/17 00:17 98.8 F 95 18 96/60 97 11/30/17 22:01 18 95 11/30/17 20:21 100.4 F H 108 18 97/63 99 11/30/17 15:55 16 100 Intake and Output 11/30/17 12/01/17 12/01/17 23:59 07:59 15:59 Intake Total 1600 / 1600 0 / 0 Output Total 0 / 0 400 / 400 Balance 1600 / 1600 0 / 0 -400 / -400 Intake: IV Fluids 1000 / 1000 Lactated Ringers 1,000 ML @ 100 1000 / 1000 mls/hr IVC .Q10H [facility] Rx#: [id number] Oral 600 / 600 0 / 0 Output: Urine 0 / 0 Emesis 400 / 400 Other: Meal Dinner Percent of Meal Consumed 25% # Voids 1 2 1 Blood Glucose* 165 155 139 - Labs Labs: Abnormal lab results POC Glucose 165 mg/dL (70-99) H 11/30/17 20:17 - VTE Documentation of Mechanical Device: Intermittent pneumatic compression device Consult Discharge Plan - Plan Referrals: Fátima Yung MD [Primary Care Provider] - Prescriptions: OxyCODONE Immed Rel [Roxicodone 5 MG] 5 mg PO Q6H PRN 7 Days #28 tablet PRN Reason: Severe Pain
[2017-12-01] MEDS: (Albuterol Sulfate [Proair Respiclick] 1 PUFF) IH SCH (19:52)
[2017-12-02] MEDS: Ipratropium/Albuterol Neb 3 ML IH SCH ×2 (04:36→09:14)
[2017-12-02 06:48] VITALS: BP 115/79
[2017-12-02] MEDS: (Albuterol Sulfate [Proair Respiclick] 1 PUFF) IH SCH (07:33)
[2017-12-02] MEDS: *HR* Metformin 500 MG TABLET PO SCH (07:46)
[2017-12-02] MEDS: *HR* OxyCODONE Immed Rel 5 MG TABLET PO PRN (07:47)
[2017-12-02] MEDS: Cyanocobalamin (B-12) 1,000 MCG TABLET PO SCH (07:47)
[2017-12-02] MEDS: Aspirin 81 MG TAB.CHEW PO SCH (07:47)
[2017-12-02] MEDS: *HR* GlipiZIDE 5 MG TABLET PO SCH (07:47)
[2017-12-02] MEDS: Potassium Citrate 10 MEQ TABLET.ER PO SCH (07:47)
[2017-12-02] MEDS: Budesonide/Formoterol 160/4.5 MDI IH SCH (09:14)
--- NOTE | 2017-12-02 16:22 | Orthopedics Progress Note ---
Date of Encounter: 12/02/17 Time of Encounter: 08:30 - Assessment and Plan (1) Spondylolisthesis, lumbar region Status: Chronic (2) Lumbar stenosis Status: Chronic Qualifiers: Neurogenic claudication status: unspecified Qualified Code(s): M48.061 - Spinal stenosis, lumbar region without neurogenic claudication (3) Lumbar radiculopathy Status: Chronic (4) Status post lumbar spinal fusion Status: Acute Subjective Principal diagnosis: Spondylolisthesis, lumbar stenosis, lumbar radiculopathy Interval history: POD#2 Posterior lumbar interbody fusion L4-L5 on 11/29/17 for Spondylolisthesis , lumbar stenosis, lumbar radiculopathy The patient is without complaints. Afebrile vital signs are stable. Incision is clean dry and intact. Neurovascularly intact with regard to bilateral lower extremities. Fires all upper and lower extremity motor groups. Patient with nausea and vomiting after lunch yesterday. Discharge home yesterday secondary to nausea and vomiting. Patient states this has resolved today and her appetite is back to normal. We will proceed to discharge today. Assessment: Stable postoperative. Plan: Reviewed postoperative restrictions and precautions. Patient verbalized understanding. Brace applied and patient aware to apply with activity. Mobilize with therapy Continue analgesics as needed Discharge planning - home with self-care either today Radiographs reviewed Objective Vital signs: Vital Signs Temp Pulse Resp BP Pulse Ox 12/02/17 09:17 18 96 12/02/17 06:47 97.4 F L 107 18 115/79 97 12/02/17 04:37 18 98 12/02/17 03:32 98.9 F 103 14 92/64 96 12/01/17 23:47 99.1 F 108 14 91/61 93 12/01/17 22:07 18 100 12/01/17 19:22 98.2 F 109 15 100/60 96 Intake and Output 12/02/17 12/02/17 12/02/17 07:59 15:59 23:59 Other: # Voids 1 Blood Glucose* 139 - Labs Labs: Abnormal lab results POC Glucose 139 mg/dL (70-99) H 12/02/17 07:05 - VTE Documentation of Mechanical Device: Intermittent pneumatic compression device Consult Discharge Plan - Plan Additional Instructions: Discharge Instructions: Lumbar Please call [facility] ([phone]), your Primary Care Physician, or report to the ER if you have any of the following symptoms: Fever greater that 101.5, increased pain/redness/drainage/odor for your incision site or any other concerning symptoms. ACTIVITY * May Shower * No Tub Baths * No lifting greater than 10 pounds * No Smoking * No Swimming * No off Ground Activities (Running, Climbing, Ladders, Horseback Riding) * No Driving * Wear Back Brace when up walking if lumbar fusion done MEDICATIONS: Upon discharge resume your home medications. Take all the medications as prescribed. Take a stool softener if taking narcotic pain medications. Stool softeners are only effective if you drink enough fluids. Drink 6-8 glass of water or fluids a day, unless this is not allowed for another health problem. Despite using stool softeners, if you haven't had a bowel movement in 3 days, please switch to a gentle laxative. Gentle laxatives are sold over the counter. You should have a bowel movement within 24 hours, if not call the office. You will be discharged from the hospital with a prescription for pain medication. You are encouraged to decrease the use of narcotic pain medication as tolerated. Should you require a refill, please call the office. It is best to call 48-72 hours in advance of needing a prescription refill so you don't run out of medication. WOUND CARE: Remove Dressing Tomorrow. Leave incision open to air. Pat dry when you get out of the shower. FOLLOW-UP: Please follow up with your surgeon in the orthopedic clinic in 2 weeks from the day of surgery. References: [employer] ([email or web address]) Referrals: Lavinia Joe PAC [Physician Band Reamer Machine Operator] - 12/13/17 11:00 am Fátima Yung MD [Primary Care Provider] - 12/09/17 11:00 am Prescriptions: OxyCODONE Immed Rel [Roxicodone 5 MG] 5 mg PO Q6H PRN 7 Days #28 tablet PRN Reason: Severe Pain
== END 2017-12-02 10:20 | disposition home or self-care (01) | DRG 304 ==
LOC: SAMDAY 05:53 → 3NENU 11:45
PROVIDERS: ADMIT Orthopaedic Surgery Orthopaedic Surgery of the Spine; ATTEND Orthopaedic Surgery Orthopaedic Surgery of the Spine